=== PATIENT | male | born 1985 | race Caucasian/White ===

== ENCOUNTER 2017-03-18 13:53 | Inpatient (IN) | payer BC, OTHER ==
[2017-03-18 14:12] LABS: ABSOLUTE BASOPHILS # (AUTO) 0.1 10^3/uL (0.0-0.2); ABSOLUTE EOSINOPHILS # (AUTO) 0.3 10^3/uL (0.0-0.6); ABSOLUTE MONOCYTES (AUTO) 0.5 10^3/uL (0.1-1.4); BASOPHILS % (AUTO) 0.5 % (0-2); EOSINOPHILS % (AUTO) 3.4 % (0-6); HEMATOCRIT 40.4 % (37.9-51.0); HEMOGLOBIN 13.8 g/dL (13.5-17.0); MEAN CORPUSCULAR HEMOGLOBIN 28.6 pg (27.0-33.4); MEAN CORPUSCULAR HGB CONC 34.2 g/dL (32.0-36.0); MEAN CORPUSCULAR VOLUME 84 fl (80-97); MONOCYTES % (AUTO) 5.3 % (3-13); RED BLOOD COUNT 4.83 10^6/uL (4.35-5.55); RED CELL DISTRIBUTION WIDTH 13.3 % (11.5-14.0); SEGMENTED NEUTROPHILS % (AUTO) 60.8 % (42-78); WHITE BLOOD COUNT 9.9 10^3/uL (4.0-10.5)
[2017-03-18] MEDS ORDERED: LORAZEPAM INJ 2 MG/1 ML VIAL IV ONE ×2 (14:17→20:54)
[2017-03-18] MEDS ORDERED: LORAZEPAM INJ 2 MG/1 ML VIAL ONE (14:20)
--- NOTE | 2017-03-18 14:20 | ER Document Report ---
ED Seizure - General Chief Complaint: Probable Seizure Stated Complaint: PROBABLE SEIZURE Time Seen by Provider: 03/18/17 14:06 Mode of Arrival: Medic Information source: Patient Notes: Patient was at work today and had a witnessed seizure. Patient had fallen to the floor at work. EMS arrived and patient was postictal. Patient presented to the emergency department initially awake alert and oriented. Provider went into the room initially when patient was actively seizing for about 20 seconds. RN states that patient has a previous history of seizures in the past. Nurse states that there is a question about whether or not patient may be withdrawing from medications as he has been taking Suboxone but has been stretching out his prescription. - HPI Patient complains to provider of: History of seizures Quality of pain: No pain Pain Level: Denies Preceding symptoms/context: denies: Recent illness/fever Character of seizure: Generalized shaking Post-ictal symptoms: Confusion - reported Injuries: None - Related Data Allergies/Adverse Reactions: No Known Allergies Allergy (Unverified 03/18/17 14:52) Past Medical History - General Information source: Patient, Parent - Social History Smoking Status: Current Every Day Smoker Frequency of alcohol use: Occasional Drug Abuse: Prescription drugs Occupation: [employer] Lives with: Spouse/Significant other Family History: Reviewed & Not Pertinent - Past Medical History Cardiac Medical History: Reports: Hx Hypertension Neurological Medical History: Reports: Hx Seizures - 1st diagnosed 05/2016 Other: Family report that patient's seizures were attributed to too high dose of gabapentin Psychiatric Medical History: Reports: Hx Depression Past Surgical History: Reports: Hx Herniorrhaphy, Hx Orthopedic Surgery Review of Systems - Review of Systems Constitutional: No symptoms reported. denies: Fever, Recent illness EENT: No symptoms reported Cardiovascular: No symptoms reported. denies: Chest pain Respiratory: No symptoms reported. denies: Cough, Short of breath Gastrointestinal: No symptoms reported Genitourinary: No symptoms reported Male Genitourinary: No symptoms reported Musculoskeletal: No symptoms reported Skin: No symptoms reported Hematologic/Lymphatic: No symptoms reported Neurological/Psychological: Seizure Physical Exam - Vital signs Vitals: Temp Resp BP Pulse Ox 97.9 F 19 153/102 H 93 03/18/17 14:02 03/18/17 14:02 03/18/17 14:02 03/18/17 14:02 - General General appearance: Appears well, Alert In distress: None - HEENT Head: Normocephalic, Atraumatic. No: Racoon's eyes, Tenderness Eyes: Normal Conjunctiva: Normal Nasal: Normal Mouth/Lips: Normal Mucous membranes: Normal Neck: Normal, Supple - Respiratory Respiratory status: No respiratory distress Chest status: Nontender Breath sounds: Normal. No: Rales, Rhonchi, Stridor, Wheezing Chest palpation: Normal - Cardiovascular Rhythm: Regular Heart sounds: S1 appreciated, S2 appreciated Murmur: No - Abdominal Inspection: Normal Distension: No distension Bowel sounds: Normal - Back Back: Normal, Nontender. No: CVA tenderness - Extremities General upper extremity: Normal inspection, Normal ROM General lower extremity: Normal inspection, Normal ROM - Neurological Neuro grossly intact: Yes Cognition: Normal Casper Coma Scale Eye Opening: Spontaneous Casper Coma Scale Verbal: Oriented Hannah Coma Scale Motor: Obeys Commands Hannah Coma Scale Total: 15 - Psychological Associated symptoms: Normal affect, Normal mood - Skin Skin Temperature: Warm Skin Moisture: Dry Skin Color: Normal Course - Re-evaluation Re-evalutation: 03/18/17 14:19 Staff called to room as patient was actively seizing for about [address] Jenkins to bedside, agrees with plan for IV benzodiazepine drug. Recommends admission 03/18/17 14:40 Patient awake, alert and oriented. Discussed patient's medical history with patient and his family who are at bedside. Family reports that patient previously had new onset of seizures in May of last year that they attributed to taking too much gabapentin. Patient states that presently he only takes Lexapro, Dexilant and has been on Suboxone. Patient states that his girlfriend take Suboxone and that she has been giving him some of hers as he has not had any recent prescriptions for Suboxone filled. Patient adamant that he has not been taking any gabapentin. Spoke with poison control who states that they do not typically find increase seizure threshold with overdoses of gabapentin. The concern would be for patient taking the Lexapro as well as the extended release Wellbutrin. Recommend observing patient for possible additional seizures as taking overdose of wellbutrin may cause seizures 18 hours from initial onset of seizures. 03/18/17 16:50 Vital signs stable, family at bedside. 03/18/17 17:[address] Mace who is on-call for Dr Maxwell who agrees to accept patient as a telemetry observation admission. Discussed patient's history, presentation as well as medications. Discussed conversation with poison control. - Vital Signs Vital signs: Temp Pulse Resp BP Pulse Ox 97.9 F 21 H 135/90 H 96 03/18/17 14:02 03/18/17 17:01 03/18/17 17:00 03/18/17 17:01 - Laboratory Result Diagrams: 03/18/17 14:00 03/18/17 14:00 Laboratory results interpreted by me: 03/18/17 14:00 Acetaminophen < 10 L Labs- Entire Visit 03/18/17 03/18/17 03/18/17 14:00 14:00 14:00 WBC 9.9 RBC 4.83 Hgb 13.8 Hct 40.4 MCV 84 MCH 28.6 MCHC 34.2 RDW 13.3 Plt Count 185 Seg Neutrophils % 60.8 Lymphocytes % 30.0 Monocytes % 5.3 Eosinophils % 3.4 Basophils % 0.5 Absolute Neutrophils 6.0 Absolute Lymphocytes 3.0 Absolute Monocytes 0.5 Absolute Eosinophils 0.3 Absolute Basophils 0.1 Sodium 140.0 Potassium 4.3 Chloride 104 Carbon Dioxide 22 Anion Gap 14 BUN 17 Creatinine 1.03 Est GFR ( Amer) > 60 Est GFR (Non-Af Amer) > 60 Glucose 86 Calcium 10.1 Magnesium 2.0 Total Bilirubin 0.3 Direct Bilirubin 0.3 Indirect Bilirubin Not Reportable Neonat Total Bilirubin Not Reportable AST 30 ALT 38 Alkaline Phosphatase 81 Total Protein 6.9 Albumin 4.3 Urine Color Urine Appearance Urine pH Ur Specific [place] Urine Protein Urine Glucose (UA) Urine Ketones Urine Blood Urine Nitrite Urine Bilirubin Urine Urobilinogen Ur Leukocyte Esterase Urine WBC (Auto) Squamous Epi Cells Auto Urine Mucus (Auto) Urine Ascorbic Acid Salicylates 2.7 Urine Opiates Screen Urine Methadone Screen Acetaminophen < 10 L Ur Barbiturates Screen Ur Phencyclidine Scrn Ur Amphetamines Screen U Benzodiazepines Scrn Urine Cocaine Screen U Marijuana (THC) Screen Serum Alcohol < 10 03/18/17 03/18/17 15:51 15:51 WBC RBC Hgb Hct MCV MCH MCHC RDW Plt Count Seg Neutrophils % Lymphocytes % Monocytes % Eosinophils % Basophils % Absolute Neutrophils Absolute Lymphocytes Absolute Monocytes Absolute Eosinophils Absolute Basophils Sodium Potassium Chloride Carbon Dioxide Anion Gap BUN Creatinine Est GFR ( Amer) Est GFR (Non-Af Amer) Glucose Calcium Magnesium Total Bilirubin Direct Bilirubin Indirect Bilirubin Neonat Total Bilirubin AST ALT Alkaline Phosphatase Total Protein Albumin Urine Color YELLOW Urine Appearance CLEAR Urine pH 5.0 Ur Specific [place] 1.025 Urine Protein NEGATIVE Urine Glucose (UA) NEGATIVE Urine Ketones NEGATIVE Urine Blood NEGATIVE Urine Nitrite NEGATIVE Urine Bilirubin NEGATIVE Urine Urobilinogen NEGATIVE Ur Leukocyte Esterase NEGATIVE Urine WBC (Auto) 0 Squamous Epi Cells Auto <1 Urine Mucus (Auto) RARE Urine Ascorbic Acid NEGATIVE Salicylates Urine Opiates Screen NEGATIVE Urine Methadone Screen NEGATIVE Acetaminophen Ur Barbiturates Screen NEGATIVE Ur Phencyclidine Scrn NEGATIVE Ur Amphetamines Screen NEGATIVE U Benzodiazepines Scrn NEGATIVE Urine Cocaine Screen NEGATIVE U Marijuana (THC) Screen NEGATIVE Serum Alcohol - Diagnostic Test Radiology reviewed: Reports reviewed Discharge - Discharge Clinical Impression: Seizure Condition: Stable Disposition: ADMITTED OBSERVATION Admitting Provider: Nakita Unit Admitted: Telemetry
[2017-03-18 14:42] LABS: ALANINE AMINOTRANSFERASE 38 U/L (21-72); ALBUMIN 4.3 g/dL (3.5-5.0); ALKALINE PHOSPHATASE 81 U/L (38-126); ANION GAP 14 (5-19); ASPARTATE AMINO TRANSFERASE 30 U/L (17-59); BILIRUBIN,DIRECT 0.3 mg/dL (0.0-0.4); BILIRUBIN,TOTAL 0.3 mg/dL (0.2-1.3); BLOOD UREA NITROGEN 17 mg/dL (7-20); CALCIUM 10.1 mg/dL (8.4-10.2); CARBON DIOXIDE 22 mmol/L (22-30); CHLORIDE 104 mmol/L (98-107); CREATININE RESULT 1.03 mg/dL (0.52-1.25); GLUCOSE 86 mg/dL (75-110); POTASSIUM 4.3 mmol/L (3.6-5.0); TOTAL PROTEIN 6.9 g/dL (6.3-8.2)
[2017-03-18 14:44] LABS: ALCOHOL < 10 mg/dL (NONE DETECTED)
--- NOTE | 2017-03-18 14:57 | RADIOLOGY REPORT (SQ) ---
EXAM DESCRIPTION: CT HEAD WITHOUT COMPLETED DATE/TIME: 03/18/2017 2:37 pm REASON FOR STUDY: seizure, fall COMPARISON: None. TECHNIQUE: Axial images acquired through the brain without intravenous contrast. Images reviewed wi th bone, brain and subdural windows. Images stored on PACS. All CT scanners at this facility use dose modulation, iterative reconstruction, and/or weight based d osing when appropriate to reduce radiation dose to as low as reasonably achievable (ALARA). [facility]: Dose Right [facility]: CareDose [facility]: Dose Right [facility]: Teradose 4D [facility]: Smart [employer] RADIATION DOSE: Up-to-date CT equipment and radiation dose reduction techniques were employed. CTDIv ol: 64.6 mGy. DLP: 1163 mGy-cm. mGy. LIMITATIONS: None. FINDINGS: VENTRICLES: Normal size and contour. CEREBRUM: No masses. No hemorrhage. No midline shift. No evidence for acute infarction. Normal gra y/white matter differentiation. No areas of low density in the white matter. CEREBELLUM: No masses. No hemorrhage. No alteration of density. No evidence for acute infarction. EXTRAAXIAL SPACES: No fluid collections. No masses. ORBITS AND GLOBE: No intra- or extraconal masses. Normal contour of globe without masses. CALVARIUM: No fracture. PARANASAL SINUSES: No fluid levels. SOFT TISSUES: No mass or hematoma. OTHER: No other significant finding. IMPRESSION: NORMAL BRAIN CT WITHOUT CONTRAST. COMMENT: Quality ID # [id number]: Final reports with documentation of one or more dose reduction techniques (e.g., Automated exposure control, adjustment of the mA and/or kV according to patient size, use of iterative reconstruction technique) TECHNICAL DOCUMENTATION: JOB ID: [id number]- All Rights Reserved
--- NOTE | 2017-03-18 14:59 | RADIOLOGY REPORT (SQ) ---
EXAM DESCRIPTION: CT CERVICAL SPINE WITHOUT COMPLETED DATE/TIME: 03/18/2017 2:45 pm REASON FOR STUDY: seizure, fall COMPARISON: None. TECHNIQUE: Axial images acquired through the cervical spine without intravenous contrast. Images re viewed with lung, soft tissue and bone windows. Reconstructed coronal and sagittal MPR images review ed. Images stored on PACS. All CT scanners at this facility use dose modulation, iterative reconstruction, and/or weight based d osing when appropriate to reduce radiation dose to as low as reasonably achievable (ALARA). [facility]: Dose Right [facility]: CareDose [facility]: Dose Right [facility]: Teradose 4D [facility]: Smart [employer] RADIATION DOSE: Up-to-date CT equipment and radiation dose reduction techniques were employed. CTDIv ol: 18.3 mGy. DLP: 364 mGy-cm. mGy. LIMITATIONS: None. FINDINGS: ALIGNMENT: Anatomic. MINERALIZATION: Normal. VERTEBRAL BODIES: No fractures or dislocation. DISCS: No significant disc disease. FACETS, LATERAL MASSES, POSTERIOR ELEMENTS: No fractures. No dislocation. No acute findings. HARDWARE: None in the spine. VISUALIZED RIBS: No fractures. LUNG APICES AND SOFT TISSUES: No significant or acute findings. OTHER: No other significant finding. IMPRESSION: NO ACUTE OR SIGNIFICANT FINDINGS IN THE CERVICAL SPINE. TECHNICAL DOCUMENTATION: JOB ID: [id number] Quality ID # [id number]: Final reports with documentation of one or more dose reduction techniques (e.g., Au tomated exposure control, adjustment of the mA and/or kV according to patient size, use of iterative reconstruction technique) 2010 [employer]- All Rights Reserved
[2017-03-18] MEDS ORDERED: NORMAL SALINE 1000 ML 1,000 ML IV ONE ×2 (15:25→16:19)
[2017-03-18 15:36] LABS: ADD ON TESTING BLD IN LAB ACKNOWLEDGE
[2017-03-18 16:06] LABS: APPEARANCE,URINE CLEAR; BILIRUBIN,URINE NEGATIVE (NEGATIVE); GLUCOSE, URINE NEGATIVE (NEGATIVE); KETONES,URINE NEGATIVE (NEGATIVE); LEUKOCYTE ESTERASE,URINE NEGATIVE (NEGATIVE); NITRITE,URINE NEGATIVE (NEGATIVE); PROTEIN,URINE NEGATIVE (NEGATIVE); URINE SPECIFIC GRAVITY 1.025; UROBILINOGEN,URINE NEGATIVE mg/dL (<2.0)
[2017-03-18 16:50] LABS: URINE BARBITURATES SCREEN NEGATIVE; URINE METHADONE SCREEN NEGATIVE; URINE OPIATES LOW NEGATIVE; URINE PHENCYCLIDINE SCREEN NEGATIVE
--- NOTE | 2017-03-18 17:22 | EKG REPORT ---
SEVERITY:- OTHERWISE NORMAL ECG - SINUS TACHYCARDIA : Confirmed by: Johnson Paiz 18-Mar-2017 17:21:45
[2017-03-18] MEDS ORDERED: NICOTINE 14 MG/24 HR PATCH.TD24 TD ONE (20:00)
[2017-03-18] MEDS ORDERED: NORMAL SALINE 1000 ML 1,000 ML IV PRN (20:04)
--- NOTE | 2017-03-18 20:52 | PDOC H&P ---
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 On site he was found and reported to be in postictal state by the EMS crew. Upon arrival in the ED patient has fully recovered and able to contribute to his medical history at the time of my assessment. His first episode of seizure was in 05/2016 while in [facility]. Second episode was in [place] and he was evaluated and treated at Hospital in [place], [place]. His seizure was described more of tonic state and unresponsiveness during the seizure episode. No associated clonic event, incontinence or frothing in the mouth. He claimed that his first seizure followed excessive use of Gabapentin which he admitted to abusing and not taking regularly. He was treated with Keppra at the hospital in [place] but discontinued since discharge. Patient reported taking Lorazepam and Clonazepam along with Mirtazipine. He is on Dexilant for GERD. Unsure about regular usage of Buspirone ER. There is history of Suboxone usage and cigarette smoking. Patient admitted to alcohol and prescription drug usage. His morbidities include hypertension, GERD, and Depression. Past Medical History Cardiac Medical History: Reports: Hypertension Neurological Medical History: Reports: Seizures - 1st diagnosed 05/2016 Psychiatric Medical History: Reports: Depression Past Surgical History Past Surgical History: Reports: Herniorrhaphy, Orthopedic Surgery Social History Lives with: Spouse/Significant other Smoking Status: Current Every Day Smoker Cigarettes Packs Per Day: 0.5 Frequency of Alcohol Use: None Hx Recreational Drug Use: No Hx Prescription Drug Abuse: Yes - Advance Directive Resuscitation Status: Full Code Family History Family History: Reviewed & Not Pertinent Parental Family History Reviewed: Yes Children Family History Reviewed: Yes Sibling(s) Family History Reviewed.: Yes Medication/Allergy Home Medications: Bupropion HCl [Bupropion HCl Sr] 150 mg PO Q12 03/18/17 Clonazepam [Klonopin 1 mg Tablet] 1 mg PO QHS 03/18/17 Lorazepam [Ativan 1 mg Tablet] 1 mg PO Q8 03/18/17 Mirtazapine [Remeron] 30 mg PO QHS 03/18/17 Allergies/Adverse Reactions: No Known Allergies Allergy (Unverified 03/18/17 14:52) Review of Systems Constitutional: ABSENT: chills, fever(s), headache(s), weight gain, weight loss Eyes: ABSENT: visual disturbances Ears: ABSENT: hearing changes Nose, Mouth, and Throat: ABSENT: as per HPI, headache(s), mouth pain, sore throat, vertigo, other Cardiovascular: ABSENT: chest pain, dyspnea on exertion, edema, orthropnea, palpitations Respiratory: ABSENT: cough, hemoptysis Gastrointestinal: ABSENT: abdominal pain, constipation, diarrhea, hematemesis, hematochezia, nausea, vomiting Musculoskeletal: ABSENT: joint swelling Integumentary: ABSENT: rash, wounds Neurological: PRESENT: convulsions. ABSENT: as per HPI, abnormal gait, abnormal movements, abnormal speech, confusion, dizziness, focal weakness, frequent falls, lack of coordination, memory loss, numbness, paresthesias, restless legs, syncope, tingling, tremor(s), vertigo, weakness, other Psychiatric: PRESENT: anxiety, depression. ABSENT: hallucinations, homidical ideation, suicidal ideation Endocrine: ABSENT: cold intolerance, heat intolerance, polydipsia, polyuria Hematologic/Lymphatic: ABSENT: easy bleeding, easy bruising, lymphadenopathy Allergic/Immunologic: ABSENT: as per HPI, seasonal rhinorrhea, other Physical Exam Vital Signs: Temp Pulse Resp BP Pulse Ox 97.9 F 96 21 H 135/90 H 96 03/18/17 14:02 03/18/17 18:26 03/18/17 17:01 03/18/17 17:00 03/18/17 17:01 General appearance: PRESENT: no acute distress, well-developed, well-nourished Head exam: PRESENT: atraumatic, normocephalic Eye exam: PRESENT: conjunctiva pink, EOMI, PERRLA. ABSENT: scleral icterus Ear exam: PRESENT: normal external ear exam Mouth exam: PRESENT: moist, tongue midline Throat exam: ABSENT: post pharyngeal erythema, tonsillar erythema, tonsillar exudate, tonsillogmegaly, other Neck exam: PRESENT: full ROM. ABSENT: carotid bruit, JVD, lymphadenopathy, thyromegaly Respiratory exam: PRESENT: clear to auscultation jonathon Cardiovascular exam: PRESENT: RRR. ABSENT: diastolic murmur, rubs, systolic murmur Vascular exam: PRESENT: normal capillary refill. ABSENT: pallor GI/Abdominal exam: PRESENT: normal bowel sounds, soft. ABSENT: distended, guarding, mass, organolmegaly, rebound, tenderness Rectal exam: ABSENT: deferred Gentrourinary exam: ABSENT: indwelling catheter Extremities exam: ABSENT: pedal edema Musculoskeletal exam: PRESENT: normal inspection Neurological exam: PRESENT: alert, awake, oriented to person, oriented to place , oriented to time, oriented to situation, CN II-XII grossly intact. ABSENT: motor sensory deficit Psychiatric exam: PRESENT: appropriate affect, normal mood. ABSENT: homicidal ideation, suicidal ideation Skin exam: PRESENT: dry, intact, warm. ABSENT: cyanosis, rash Results Laboratory Results: I reviewed his lab results on [facility] and form significant part of my medical decision making on this case. Impressions: Cervical Spine CT 03/18/17 14:24 IMPRESSION: NO ACUTE OR SIGNIFICANT FINDINGS IN THE CERVICAL SPINE. Head CT 03/18/17 14:24 IMPRESSION: NORMAL BRAIN CT WITHOUT CONTRAST. Assessment & Plan - Diagnosis (1) Seizure disorder Is this a current diagnosis for this admission?: Yes Plan: See admitting attending physician orders. His seizure activity may be multifactorial, particularly with his medication drug-drug interaction with increase seizure threshold or decrease medication efficiency. (2) HTN (hypertension) Qualifiers: Hypertension type: essential hypertension Qualified Code(s): I10 - Essential (primary) hypertension Is this a current diagnosis for this admission?: Yes Plan: See admitting attending physician orders. (3) GERD (gastroesophageal reflux disease) Qualifiers: Esophagitis presence: without esophagitis Qualified Code(s): K21.9 - Gastro -esophageal reflux disease without esophagitis Is this a current diagnosis for this admission?: Yes Plan: See admitting attending physician orders. (4) Substance abuse Is this a current diagnosis for this admission?: Yes Plan: See admitting attending physician orders. (5) Cigarette smoker one half pack a day or less Is this a current diagnosis for this admission?: Yes Plan: See admitting attending physician orders. - Time Time Spent: 50 to 70 Minutes Smoking Cessation Education: 3 to 10 minutes Medications reviewed and adjusted accordingly: Yes Anticipated discharge: Home - Inpatient Certification Based on my medical assessment, after consideration of the patient's comorbidities, presenting symptoms, or acuity I expect that the services needed warrant INPATIENT care.: Yes I certify that my determination is in accordance with my understanding of Medicare's requirements for reasonable and necessary INPATIENT services [42 CFR 412.3e].: Yes Medical Necessity: Need Close Monitoring Due to Risk of Patient Decompensation, Need For IV Fluids, Need For Continuous Telemetry Monitoring, Risk of Complication if Not Cared For in Hospital 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
[2017-03-18] MEDS ORDERED: ENOXAPARIN SODIUM INJ 40 MG/0.4 ML DISP.SYRIN SUBCUT ONE (21:00)
[2017-03-18] MEDS ORDERED: LEVETIRACETAM 500 MG TABLET PO ONE (21:00)
[2017-03-18 21:23] LABS: PROTHROMBIN TIME 12.2 SEC (11.4-15.4)
[2017-03-19] MEDS: LANSOPRAZOLE 30 MG TAB.RAP.DR PO SCH (05:30)
--- NOTE | 2017-03-19 08:22 | PDOC PROGRESS REPORT ---
Subjective Progress Note for:: 03/19/17 Subjective:: No recurrent seizure activity since admission. No chest pain or difficulty with breathing. No nausea ore vomiting. No fever or chills. Physical Exam Vital Signs: Temp Pulse Resp BP Pulse Ox 97.3 F 101 H 16 112/71 97 03/19/17 04:00 03/19/17 07:00 03/19/17 04:00 03/19/17 04:00 03/18/17 19:00 General appearance: PRESENT: no acute distress Head exam: PRESENT: atraumatic, normocephalic Eye exam: PRESENT: conjunctiva pink. ABSENT: conjunctiva pale, scleral icterus Mouth exam: PRESENT: moist Respiratory exam: PRESENT: clear to auscultation jonathon Cardiovascular exam: PRESENT: RRR. ABSENT: diastolic murmur, rubs, systolic murmur Vascular exam: PRESENT: normal capillary refill. ABSENT: pallor GI/Abdominal exam: PRESENT: normal bowel sounds, soft. ABSENT: distended, guarding, mass, organolmegaly, rebound, tenderness Extremities exam: ABSENT: pedal edema Musculoskeletal exam: PRESENT: normal inspection Neurological exam: PRESENT: alert, awake, oriented to person, oriented to place , oriented to time, oriented to situation, CN II-XII grossly intact. ABSENT: motor sensory deficit Psychiatric exam: PRESENT: appropriate affect, normal mood. ABSENT: homicidal ideation, suicidal ideation Skin exam: PRESENT: dry, intact, warm. ABSENT: cyanosis, rash Results Impressions: Cervical Spine CT 03/18/17 14:24 IMPRESSION: NO ACUTE OR SIGNIFICANT FINDINGS IN THE CERVICAL SPINE. Head CT 03/18/17 14:24 IMPRESSION: NORMAL BRAIN CT WITHOUT CONTRAST. Assessment & Plan - Diagnosis (1) Seizure disorder Is this a current diagnosis for this admission?: Yes Plan: Maintain on Keppra therapy and seizure precautions. Follow up on neurology consultation request. (2) HTN (hypertension) Qualifiers: Hypertension type: essential hypertension Qualified Code(s): I10 - Essential (primary) hypertension Is this a current diagnosis for this admission?: Yes Plan: Blood pressure remain in good range. He is currently on IV N/S solution infusion for hydration. (3) GERD (gastroesophageal reflux disease) Qualifiers: Esophagitis presence: without esophagitis Qualified Code(s): K21.9 - Gastro -esophageal reflux disease without esophagitis Is this a current diagnosis for this admission?: Yes Plan: Maintain on PUD prophylaxis Prevacid therapy as per protocol. (4) Mixed anxiety and depressive disorder Is this a current diagnosis for this admission?: Yes Plan: Follow up on psychiatry consultation request. (5) Substance abuse Is this a current diagnosis for this admission?: Yes Plan: I will seek psychiatry input, particularly with his history of depression and anxiety. (6) Cigarette smoker one half pack a day or less Is this a current diagnosis for this admission?: Yes Plan: Started on Nicotine patch therapy. Bedside counseling completed during this consultation regarding smoking cessation. - Time Time Spent with patient: 25-34 minutes Medications reviewed and adjusted accordingly: Yes Anticipated discharge: Home Within: Other - Inpatient Certification Based on my medical assessment, after consideration of the patient's comorbidities, presenting symptoms, or acuity I expect that the services needed warrant INPATIENT care.: Yes I certify that my determination is in accordance with my understanding of Medicare's requirements for reasonable and necessary INPATIENT services [42 CFR 412.3e].: Yes Medical Necessity: Need Close Monitoring Due to Risk of Patient Decompensation, Need For IV Fluids, Need For Continuous Telemetry Monitoring, Risk of Complication if Not Cared For in Hospital 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 Follow up on requested neurology and psychiatry consultations.
[2017-03-19] MEDS: LEVETIRACETAM 500 MG TABLET PO SCH ×2 (09:31→21:06)
[2017-03-19] MEDS: NICOTINE 14 MG/24 HR PATCH.TD24 TD SCH (09:31)
[2017-03-19] MEDS: ENOXAPARIN SODIUM INJ 40 MG/0.4 ML DISP.SYRIN SUBCUT SCH (09:31)
--- NOTE | 2017-03-19 15:03 | PSYCHOLOGICAL NOTE ---
Psych Note - Psych Note Psych Note: Patient is a 31 year old male who presented to the ED yesterday via EMS after a coworker called due to seizure. He was subsequently admitted for seizure disorder, HTN, GERD, substance abuse, and cigarette smoker (half a pack per day) . A psychiatric consult was ordered due to mixed depression and anxiety with substance abuse. Per documentation patient has had 3 seizures now since 2016, the first one patient told medical staff he had been abusing Gabapentin, and each one has been treated with Keppra. Patient reported a history of alcohol and prescription drug (specifically Oxycodone) use. He was adamant he had not used in the past year and his UDS was negative for all substances. He identified he has been to [facility] ([facility]) twice (first time was 2013) and a 6 month program in [place] (went to [facility] shortly after for 1 week detox). He acknowledged he had been on Suboxone previously (prescribed by Dr. Caldera). He reported his PCM is Dr. Milan, who prescribes all his medications. When asked if he was prescribed Lorazepam, Clonazepam, and Mirtazapine all at once he said yes. Then when confronted that typically doctors do not prescribe all of those medications together because they are the same class of medication he said he was originally on Clonazepam, it was switched to Lorazepam, he still had refills for the Clonazepam, and he takes the Mirtazipine for sleep. He stated he is no longer prescribed the Wellbutrin and that he rarely took it anyway. He reported for the past 2 years he has been prescribed Lexapro (started with 10MG and is now on 20MG). He stated his anxiety around crowds is the issue which has progressively worsened over the past 2 years. Parents were at bedside. At times they added additional information but never corrected patient. Family history includes maternal grandmother has depression and is prescribed Lexapro, as well as paternal grandfather had alcohol use. Patient was alert and oriented x4. Mood was euthymic with congruent affect. He denied SI/HI. he did not appear to be responding to internal stimuli AEB fair eye contact, answering questions when addressed, and carrying on dialogue conversation. Thought processes were organized and linear. Conversational speech was WNL for rate, tone and prosody. Intellectual abilities are estimated to be average. Insight, judgment and impulse control are fair AEB linear thinking. Diagnosis: 311 (F32.9) Unspecified Depressive Disorder History of Substance Abuse (Alcohol and Oxycodone, patient reported he has been sober for the past year) Impression/Plan: Patient is psychiatrically cleared for discharge. He does not meet [place] 122C IVC criteria. He denied SI/HI, no psychosis observed, and none of these were of concern. A new medication regimen was recommended. Patient 's father provided with the outpatient resource list and patient encouraged to follow up with a psychiatrist for continued medication management. Consulted with Dr. Montejo regarding the management and care of patient. Attending hospitalist made aware of recommendations.
[2017-03-19] MEDS: BUSPIRONE HCL 10 MG TABLET PO SCH (21:06)
[2017-03-20] MEDS: LANSOPRAZOLE 30 MG TAB.RAP.DR PO SCH (05:11)
[2017-03-20] MEDS: CITALOPRAM HYDROBROMIDE 20 MG TABLET PO SCH (09:45)
[2017-03-20] MEDS: LEVETIRACETAM 500 MG TABLET PO SCH ×2 (09:45→21:13)
[2017-03-20] MEDS: NICOTINE 14 MG/24 HR PATCH.TD24 TD SCH (09:45)
[2017-03-20] MEDS: ENOXAPARIN SODIUM INJ 40 MG/0.4 ML DISP.SYRIN SUBCUT SCH (09:45)
[2017-03-20] MEDS: BUSPIRONE HCL 10 MG TABLET PO SCH ×2 (09:46→21:13)
--- NOTE | 2017-03-20 11:00 | PDOC PROGRESS REPORT ---
Subjective Progress Note for:: 03/20/17 Subjective:: No recurrent seizure activity since admission. No chest pain or difficulty with breathing. No nausea ore vomiting. No fever or chills. Patient was seen in consultation by Dr Montejo through his associate yesterday with recommendation of Troy and Greg. Of note patient left the hospital last night but was encouraged by his parents to return immediately. Awaiting neurology consultation. Physical Exam Vital Signs: Temp Pulse Resp BP Pulse Ox 97.9 F 50 L 16 117/62 97 03/20/17 04:00 03/20/17 07:00 03/20/17 04:00 03/20/17 04:00 03/20/17 02:58 Intake & Output 03/19/17 03/20/17 03/21/17 06:59 06:59 06:59 Intake Total 1388 Balance 1388 Physical Exam: General appearance: PRESENT: no acute distress Head exam: PRESENT: atraumatic, normocephalic Eye exam: PRESENT: conjunctiva pink. ABSENT: conjunctiva pale, scleral icterus Mouth exam: PRESENT: moist Respiratory exam: PRESENT: clear to auscultation jonathon Cardiovascular exam: PRESENT: RRR. ABSENT: diastolic murmur, rubs, systolic murmur Vascular exam: PRESENT: normal capillary refill. ABSENT: pallor GI/Abdominal exam: PRESENT: normal bowel sounds, soft. ABSENT: distended, guarding, mass, organomegaly, rebound, tenderness Extremities exam: ABSENT: pedal edema Musculoskeletal exam: PRESENT: normal inspection Neurological exam: PRESENT: alert, awake, oriented to person, oriented to place , oriented to time, oriented to situation, CN II-XII grossly intact. ABSENT: motor sensory deficit Psychiatric exam: PRESENT: appropriate affect, normal mood. ABSENT: homicidal ideation, suicidal ideation Skin exam: PRESENT: dry, intact, warm. ABSENT: cyanosis, rash Results Impressions: Cervical Spine CT 03/18/17 14:24 IMPRESSION: NO ACUTE OR SIGNIFICANT FINDINGS IN THE CERVICAL SPINE. Head CT 03/18/17 14:24 IMPRESSION: NORMAL BRAIN CT WITHOUT CONTRAST. Assessment & Plan - Diagnosis (1) Seizure disorder Is this a current diagnosis for this admission?: Yes (2) HTN (hypertension) Qualifiers: Hypertension type: essential hypertension Qualified Code(s): I10 - Essential (primary) hypertension Is this a current diagnosis for this admission?: Yes (3) GERD (gastroesophageal reflux disease) Qualifiers: Esophagitis presence: without esophagitis Qualified Code(s): K21.9 - Gastro -esophageal reflux disease without esophagitis Is this a current diagnosis for this admission?: Yes (4) Mixed anxiety and depressive disorder Is this a current diagnosis for this admission?: Yes (5) Substance abuse Is this a current diagnosis for this admission?: Yes (6) Cigarette smoker one half pack a day or less Is this a current diagnosis for this admission?: Yes - Time Time Spent with patient: 25-34 minutes Medications reviewed and adjusted accordingly: Yes Anticipated discharge: Home Within: within 24 hours - Inpatient Certification Based on my medical assessment, after consideration of the patient's comorbidities, presenting symptoms, or acuity I expect that the services needed warrant INPATIENT care.: Yes I certify that my determination is in accordance with my understanding of Medicare's requirements for reasonable and necessary INPATIENT services [42 CFR 412.3e].: Yes Medical Necessity: Need Close Monitoring Due to Risk of Patient Decompensation, Need For IV Fluids, Risk of Complication if Not Cared For in Hospital Post Hospital Care: D/C [place] Documentation - Plan Summary Plan Summary: Continue current medication management. Obtain urine drug screen due to breach of his hospitalization stay last night.
[2017-03-20 14:09] LABS: URINE BARBITURATES SCREEN NEGATIVE; URINE METHADONE SCREEN NEGATIVE; URINE OPIATES LOW NEGATIVE; URINE PHENCYCLIDINE SCREEN NEGATIVE
[2017-03-21] MEDS: LANSOPRAZOLE 30 MG TAB.RAP.DR PO SCH (06:07)
[2017-03-21] MEDS: ENOXAPARIN SODIUM INJ 40 MG/0.4 ML DISP.SYRIN SUBCUT SCH (09:27)
[2017-03-21] MEDS: BUSPIRONE HCL 10 MG TABLET PO SCH (09:28)
[2017-03-21] MEDS: LEVETIRACETAM 500 MG TABLET PO SCH (09:28)
[2017-03-21] MEDS: NICOTINE 14 MG/24 HR PATCH.TD24 TD SCH (09:28)
[2017-03-21] MEDS: CITALOPRAM HYDROBROMIDE 20 MG TABLET PO SCH (09:28)
--- NOTE | 2017-03-21 13:55 | PDOC DISCHARGE SUMMARY ---
General - Admit/Disc Date/PCP Admission Date/Primary Care Provider: 03/18/17 20:59 DEEP TIDWELL MD Discharge Date: 03/21/17 - Discharge Diagnosis (1) Seizure disorder Is this a current diagnosis for this admission?: Yes (2) HTN (hypertension) Is this a current diagnosis for this admission?: Yes (3) GERD (gastroesophageal reflux disease) Is this a current diagnosis for this admission?: Yes (4) Mixed anxiety and depressive disorder Is this a current diagnosis for this admission?: Yes (5) Substance abuse Is this a current diagnosis for this admission?: Yes (6) Cigarette smoker one half pack a day or less Is this a current diagnosis for this admission?: Yes - Additional Information Resuscitation Status: Full Code Discharge Diet: Regular Discharge Activity: Activity As Tolerated Home Medications: Buspirone HCl [Buspar 10 mg Tablet] 10 mg PO Q12 #60 tablet 03/21/17 Citalopram Hydrobromide [Celexa 20 mg Tablet] 10 mg PO DAILY #30 tablet Levetiracetam [Keppra 500 mg Tablet] 500 mg PO Q12 #60 tablet 03/21/17 Nicotine [Nicoderm 14 mg/24 Hr Transdermal Patch] 1 each TD DAILY #30 patch.[id number] 03/21/17 History of Present Illness History of Present Illness: ELLE BONNER is a 31 year old male of Dr Tidwell who was brought to the ED by EMS personnel after co-worker reported episode pf seizure activity on his job. On site he was found and reported to be in postictal state by the EMS crew. Upon arrival in the ED patient has fully recovered and able to contribute to his medical history at the time of my assessment. His first episode of seizure was in 05/2016 while in [facility]. Second episode was in [place] and he was evaluated and treated at Hospital in [place], [place]. His seizure was described more of tonic state and unresponsiveness during the seizure episode. No associated clonic event, incontinence or frothing in the mouth. He claimed that his first seizure followed excessive use of Gabapentin which he admitted to abusing and not taking regularly. He was treated with Keppra at the hospital in [place] but discontinued since discharge. Patient reported taking Lorazepam and Clonazepam along with Mirtazipine. He is on Dexilant for GERD. Unsure about regular usage of Buspirone ER. There is history of Suboxone usage and cigarette smoking. Patient admitted to alcohol and prescription drug usage. His morbidities include hypertension, GERD, and Depression. Hospital Course Hospital Course: No recurrent seizure since admission. He was started on Keppra for seizure management. I reviewed and discontinue all his preadmission medications. He was seen by the psychiatry team under Dr Mary with recommendation to start on Buspar and Celexa for his Depression and anxiety management. He will receive appointment with Dr Oliveros, neurologist, before discharge home. He will follow up with Dr Tidwell, his PCP, as instructed upon discharge. This patient is not Dr Maxwell's patient. Physical Exam Vital Signs: Temp Pulse Resp BP Pulse Ox 97.7 F 71 20 99/64 L 97 03/21/17 11:33 03/21/17 11:33 03/21/17 11:33 03/21/17 11:33 03/21/17 11:33 Intake & Output 03/20/17 03/21/17 03/22/17 06:59 06:59 06:59 Intake Total 1388 2672 Balance 1388 2672 Weight 91.7 kg Physical Exam: General appearance: PRESENT: no acute distress Head exam: PRESENT: atraumatic, normocephalic Eye exam: PRESENT: conjunctiva pink. ABSENT: conjunctiva pale, scleral icterus Mouth exam: PRESENT: moist Respiratory exam: PRESENT: clear to auscultation jonathon Cardiovascular exam: PRESENT: RRR. ABSENT: diastolic murmur, rubs, systolic murmur Vascular exam: PRESENT: normal capillary refill. ABSENT: pallor GI/Abdominal exam: PRESENT: normal bowel sounds, soft. ABSENT: distended, guarding, mass, organomegaly, rebound, tenderness Extremities exam: ABSENT: pedal edema Musculoskeletal exam: PRESENT: normal inspection Neurological exam: PRESENT: alert, awake, oriented to person, oriented to place , oriented to time, oriented to situation, CN II-XII grossly intact. ABSENT: motor sensory deficit Psychiatric exam: PRESENT: appropriate affect, normal mood. ABSENT: homicidal ideation, suicidal ideation Skin exam: PRESENT: dry, intact, warm. ABSENT: cyanosis, rash Results Impressions: Cervical Spine CT 03/18/17 14:24 IMPRESSION: NO ACUTE OR SIGNIFICANT FINDINGS IN THE CERVICAL SPINE. Head CT 03/18/17 14:24 IMPRESSION: NORMAL BRAIN CT WITHOUT CONTRAST. Qualifiers PATEINT BEING DISCHARGED WITH ANY OF THE FOLLOWING DIAGNOSIS?: No Plan Discharge Plan: Discharge home on current medication management. He will follow up with Dr. Tidwell, PCP, and Dr. Oliveros, neurologist, as instructed upon discharge. I had extensive discussion with him at bedside regarding medication compliance, medical care post discharge plan, and continue abstinence from substance abuse. Time Spent: Greater than 30 Minutes
[2017-03-21 14:43] VITALS: BP 117/62
== END 2017-03-21 15:00 | disposition home or self-care (01) | DRG 101 ==
LOC: ER 13:53 → UNDOADMOB 17:24 → EH 17:24 → 4S 18:17 → UNDOADMOB 20:00 → 4S 20:00 → EH 20:00 → OBSVTOIN 20:59 → INTOOBSV 20:59 → 4S 20:59
PROVIDERS: ADMIT Internal Medicine Geriatric Medicine; ATTEND Internal Medicine
DX: G40.409 Other generalized epilepsy and epileptic syndromes, not intractable, without status epilepticus (principal); I10 Essential (primary) hypertension; K21.9 Gastro-esophageal reflux disease without esophagitis; F41.8 Other specified anxiety disorders; F17.210 Nicotine dependence, cigarettes, uncomplicated; Z79.899 Other long term (current) drug therapy
CPT/HCPCS: 36415; 70450; 72125; 80053; 80307; 81001; 83735; 85025; 85610; 85730; 93005; 93010; 96360; 96361; 99285; J1650; J2060; J7030; L0120